=== PATIENT | female | born 1955 | race Caucasian/White ===

== ENCOUNTER → 2017-10-21 | Outpatient (CLI) | payer SELFPAY ==
--- NOTE | 2017-10-21 11:25 | CPEKG ---
Heart Rate: 78 RR Interval: 769 P-R Interval: 164 QRSD Interval: 92 QT Interval: 380 QTC Interval: 433 P [place]: 52 QRS [place]: 18 T Wave [place]: 53 EKG Severity - NORMAL ECG - EKG Impression: SINUS RHYTHM EKG Impression: NON-SPEFICIC ST DEPRESSION Electronically Signed By: Mohsen Osman 21-Oct-2017 11:42:33
== END ==
LOC: FCP 11:11
PROVIDERS: ATTEND Otolaryngology
DX: Z01.818 Encounter for other preprocedural examination (principal)